=== PATIENT | female | born 1960 ===

== ENCOUNTER 2018-04-22 11:00 | Inpatient (IN) | payer OTHER ==
[2018-04-23] MEDS ORDERED: LOSARTAN POTASS50 MG (13:11)
== END 2018-04-30 15:49 | disposition home or self-care (01) | DRG 585 ==
LOC: O/R 04-29 06:00 → SURH 04-29 06:00 → SURG 04-29 07:00 → SURH 04-29 15:53
PROVIDERS: Plastic Surgery
PROC: 0HBBXZZ Excision of Right Upper Arm Skin, External Approach (ICD-10-PCS; 2018-04-29)
PROC: 0H0V0ZZ Alteration of Bilateral Breast, Open Approach (ICD-10-PCS; principal; 2018-04-29 07:00)
PROC: 0HBCXZZ Excision of Left Upper Arm Skin, External Approach (ICD-10-PCS; 2018-04-29 07:00)
DX: N62 Hypertrophy of breast (principal); E66.01 Morbid (severe) obesity due to excess calories; Z98.84 Bariatric surgery status; I10 Essential (primary) hypertension; E65 Localized adiposity